=== PATIENT | male | born 1955 | race Caucasian/White ===

== ENCOUNTER → 2017-07-07 | Day surgery (SDC) | payer OTHER ==
[2017-07-05 11:47] LABS: BASOPHILS # (AUTO) 0.1 (0.0-0.1); BASOPHILS % 0.7 % (0.0-1.0); EOSINOPHILS # (AUTO) 0.5 (0.0-0.4); EOSINOPHILS % 5.2 % (0.0-6.0); HEMATOCRIT 43.9 % (38.2-49.6); HEMOGLOBIN 14.2 g/dL (14.0-18.0); LYMPHOCYTES # (AUTO) 2.1 (1.0-3.2); MEAN CORPUSCULAR HEMOGLOBIN 28.1 pg (28-32); MEAN CORPUSCULAR HGB CONC 32.3 g/dL (31-35); MEAN CORPUSCULAR VOLUME 86.8 fL (81-99); MONOCYTES # (AUTO) 0.8 (0.2-0.8); MONOCYTES % 7.9 % (4.4-11.3); NEUTROPHILS # (AUTO) 6.3 (2.1-6.9); PLATELET COUNT 233 x10e3/uL (140-360); RED BLOOD COUNT 5.06 x10e6/uL (4.3-5.7); RED CELL DISTRIBUTION WIDTH 13.1 % (11.7-14.4)
[2017-07-05 12:08] LABS: ALANINE AMINOTRANSFERASE 31 IU/L (0-55); ALBUMIN 3.3 g/dL (3.5-5.0); ALBUMIN/GLOBULIN RATIO 0.7 (0.8-2.0); ALKALINE PHOSPHATASE 97 IU/L (40-150); ANION GAP 13.5 mmol/L (8-16); BLOOD UREA NITROGEN 11 mg/dL (7-26); BUN/CREATININE RATIO 14 (6-25); CALCIUM 9.7 mg/dL (8.4-10.2); CARBON DIOXIDE 32 mmol/L (22-29); CHLORIDE 100 mmol/L (98-107); CHOL/HDL RATIO 2.6 (3.9-4.7); CHOLESTEROL 102 MD/DL (0-199); CREATININE, SERUM 0.76 mg/dL (0.72-1.25); EST GLOMERULAR FILTRATION RATE > 60 ML/MIN (60-); GLUCOSE 269 mg/dL (74-118); HDL CHOLESTEROL 40 MG/DL (40-60); LDL CHOLESTEROL 48 MG/DL (60-130); POTASSIUM 5.5 mmol/L (3.5-5.1); SODIUM 140 mmol/L (136-145); TRIGLYCERIDES 71 MG/DL (0-149)
[~2017-07-07] VITALS: Ht 172.7 cm; Wt 80.7 kg
[~2017-07-07] MED LIST: AMARYL4 MG PO; ASPIRIN EC81 MG PO; FENTANYL CITRATE/PF 100MCG/2 ML INJ ONE; GABAPENTIN100 MG PO; HEPARIN SOD/SOD CHLORIDE 2,000 ML ONE; IOPAMIDOL 300MG/ML 100 ML INFUS..BTL IV ONE; LIDOCAINE HCL 2% LOCAL 20 ML VIAL ONE; LIPITOR20 MG PO; MIDAZOLAM HCL 2 MG/2 ML VIAL ONE; NEXIUM40 M1 PO; PRASUGREL 10 MG TAB ONE; SODIUM CHLORIDE 0.9% 1000ML 1,000 ML ONE; TRADJENTA5 MG PO; TRULICITY IJ; [UNRECOGNIZED DRUG - OTHER] PO
[2017-07-07 12:43] VITALS: BP 142/78
== END ==
LOC: CATH LAB 11:49
PROVIDERS: ATTEND Internal Medicine Cardiovascular Disease
DX: I70.202 Unspecified atherosclerosis of native arteries of extremities, left leg (principal); Z86.73 Personal history of transient ischemic attack (TIA), and cerebral infarction without residual deficits
CPT/HCPCS: 36247; 36415; 37225; 75625; 75710; 77002; 80053; 80061; 83036; 85025; C1724; C1725 ×4; C1769 ×2; C1887; J2001; J2250; J7030; Q9967; 36140; 92924

== ENCOUNTER → 2017-08-09 | Outpatient (CLI) | payer OTHER ==
[~2017-08-09] MED LIST changes: -FENTANYL CITRATE/PF 100MCG/2 ML INJ ONE; -HEPARIN SOD/SOD CHLORIDE 2,000 ML ONE; -IOPAMIDOL 300MG/ML 100 ML INFUS..BTL IV ONE; -LIDOCAINE HCL 2% LOCAL 20 ML VIAL ONE; +LIDOCAINE VISC 2% SOLN 15 ML UDC ONE; -MIDAZOLAM HCL 2 MG/2 ML VIAL ONE; -PRASUGREL 10 MG TAB ONE; -SODIUM CHLORIDE 0.9% 1000ML 1,000 ML ONE
[2017-08-09 14:57] LABS: BASOPHILS # (AUTO) 0.1 (0.0-0.1); BASOPHILS % 0.6 % (0.0-1.0); EOSINOPHILS # (AUTO) 0.3 (0.0-0.4); EOSINOPHILS % 2.7 % (0.0-6.0); HEMATOCRIT 42.5 % (38.2-49.6); LYMPHOCYTES # (AUTO) 1.9 (1.0-3.2); LYMPHOCYTES % 15.2 % (18.0-39.1); MEAN CORPUSCULAR HEMOGLOBIN 27.6 pg (28-32); MEAN CORPUSCULAR HGB CONC 32.9 g/dL (31-35); MEAN CORPUSCULAR VOLUME 83.8 fL (81-99); MONOCYTES # (AUTO) 0.9 (0.2-0.8); MONOCYTES % 7.1 % (4.4-11.3); NEUTROPHILS # (AUTO) 9.1 (2.1-6.9); NEUTROPHILS % 74.1 % (38.7-80.0); PLATELET COUNT 288 x10e3/uL (140-360); RED BLOOD COUNT 5.07 x10e6/uL (4.3-5.7)
[2017-08-09 15:16] LABS: ALANINE AMINOTRANSFERASE 15 IU/L (0-55); ALBUMIN 3.7 g/dL (3.5-5.0); ALBUMIN/GLOBULIN RATIO 0.8 (0.8-2.0); ALKALINE PHOSPHATASE 76 IU/L (40-150); ANION GAP 18.4 mmol/L (8-16); BLOOD UREA NITROGEN 11 mg/dL (7-26); BUN/CREATININE RATIO 16 (6-25); CALCIUM 9.7 mg/dL (8.4-10.2); CARBON DIOXIDE 30 mmol/L (22-29); CHLORIDE 100 mmol/L (98-107); CREATININE, SERUM 0.68 mg/dL (0.72-1.25); EST GLOMERULAR FILTRATION RATE > 60 ML/MIN (60-); GLUCOSE 67 mg/dL (74-118); POTASSIUM 4.4 mmol/L (3.5-5.1); SODIUM 144 mmol/L (136-145)
[2017-08-09 15:36] LABS: ERYTHROCYTE SEDIMENTATION RATE 28 mm/hr (0-13)
== END ==
LOC: WCC 12:40
PROVIDERS: ATTEND Podiatrist Foot & Ankle Surgery
DX: E11.621 Type 2 diabetes mellitus with foot ulcer (principal); E11.610 Type 2 diabetes mellitus with diabetic neuropathic arthropathy; L97.429 Non-pressure chronic ulcer of left heel and midfoot with unspecified severity; I69.998 Other sequelae following unspecified cerebrovascular disease; K57.33 Diverticulitis of large intestine without perforation or abscess with bleeding; M10.9 Gout, unspecified
CPT/HCPCS: 36415; 80053; 83036; 84134; 85025; 85651

== ENCOUNTER → 2017-08-16 | Outpatient (CLI) | payer OTHER ==
[~2017-08-16] MED LIST changes: -LIDOCAINE VISC 2% SOLN 15 ML UDC ONE
--- NOTE | 2017-08-16 17:30 | Diagnostic Imaging Report ---
PROCEDURE: Frontal and lateral views of the chest. COMPARISON: None. INDICATIONS: PREOP - FOOT SX FINDINGS: Lines/tubes: None. Lungs: The lungs are well inflated and clear. There is no evidence of pneumonia or pulmonary edema. Pleura: There is no pleural effusion or pneumothorax. Heart and mediastinum: The heart and the mediastinum are normal. Bones: No acute bony abnormality. 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 IMPRESSION: 1. No acute cardiopulmonary disease. Mis Biswas M.D. Dictated by: Mis Biswas M.D. on 08/16/2017 at 17:31 Electronically approved by: Mis Biswas M.D. on 08/16/2017 at 17:31
== END ==
LOC: WCC 12:35
PROVIDERS: ATTEND Podiatrist Foot & Ankle Surgery
DX: E11.621 Type 2 diabetes mellitus with foot ulcer (principal); E11.610 Type 2 diabetes mellitus with diabetic neuropathic arthropathy; L97.429 Non-pressure chronic ulcer of left heel and midfoot with unspecified severity; L97.411 Non-pressure chronic ulcer of right heel and midfoot limited to breakdown of skin; H53.9 Unspecified visual disturbance; I69.998 Other sequelae following unspecified cerebrovascular disease; K57.33 Diverticulitis of large intestine without perforation or abscess with bleeding; M10.9 Gout, unspecified; Z01.810 Encounter for preprocedural cardiovascular examination; Z01.811 Encounter for preprocedural respiratory examination
CPT/HCPCS: 36415; 71046; 82948; 87071; 87075; 87186; 87205

== ENCOUNTER → 2017-08-23 | Outpatient (CLI) | payer OTHER | LOC: WCC 11:35 | PROVIDERS: ATTEND Podiatrist Foot & Ankle Surgery | DX: E11.621 Type 2 diabetes mellitus with foot ulcer (principal); E11.610 Type 2 diabetes mellitus with diabetic neuropathic arthropathy; L97.429 Non-pressure chronic ulcer of left heel and midfoot with unspecified severity; L97.411 Non-pressure chronic ulcer of right heel and midfoot limited to breakdown of skin; I69.998 Other sequelae following unspecified cerebrovascular disease; H53.9 Unspecified visual disturbance; K57.33 Diverticulitis of large intestine without perforation or abscess with bleeding; M10.9 Gout, unspecified; Z01.810 Encounter for preprocedural cardiovascular examination; Z01.811 Encounter for preprocedural respiratory examination ==

== ENCOUNTER → 2017-08-28 | Outpatient (CLI) | payer OTHER | LOC: WCC 08:52 | PROVIDERS: ATTEND Podiatrist Foot & Ankle Surgery | DX: E11.621 Type 2 diabetes mellitus with foot ulcer (principal); E11.610 Type 2 diabetes mellitus with diabetic neuropathic arthropathy; L97.429 Non-pressure chronic ulcer of left heel and midfoot with unspecified severity; L97.411 Non-pressure chronic ulcer of right heel and midfoot limited to breakdown of skin; I69.998 Other sequelae following unspecified cerebrovascular disease; M10.9 Gout, unspecified; K57.33 Diverticulitis of large intestine without perforation or abscess with bleeding; H53.9 Unspecified visual disturbance; Z01.810 Encounter for preprocedural cardiovascular examination; Z01.811 Encounter for preprocedural respiratory examination | CPT/HCPCS: 36415; 82948; 99213; G0277 ==

== ENCOUNTER → 2017-08-29 | Outpatient (CLI) | payer OTHER | LOC: WCC 13:01 | PROVIDERS: ATTEND Podiatrist Foot & Ankle Surgery | DX: E11.621 Type 2 diabetes mellitus with foot ulcer (principal); E11.610 Type 2 diabetes mellitus with diabetic neuropathic arthropathy; L97.429 Non-pressure chronic ulcer of left heel and midfoot with unspecified severity; L97.411 Non-pressure chronic ulcer of right heel and midfoot limited to breakdown of skin; I69.998 Other sequelae following unspecified cerebrovascular disease; M10.9 Gout, unspecified; K57.33 Diverticulitis of large intestine without perforation or abscess with bleeding; H53.9 Unspecified visual disturbance; Z01.810 Encounter for preprocedural cardiovascular examination; Z01.811 Encounter for preprocedural respiratory examination ==

== ENCOUNTER → 2017-08-30 | Outpatient (CLI) | payer OTHER | LOC: WCC 09:48 | PROVIDERS: ATTEND Podiatrist Foot & Ankle Surgery | DX: E11.621 Type 2 diabetes mellitus with foot ulcer (principal); E11.610 Type 2 diabetes mellitus with diabetic neuropathic arthropathy; L97.429 Non-pressure chronic ulcer of left heel and midfoot with unspecified severity; L97.411 Non-pressure chronic ulcer of right heel and midfoot limited to breakdown of skin; I69.998 Other sequelae following unspecified cerebrovascular disease; M10.9 Gout, unspecified; K57.33 Diverticulitis of large intestine without perforation or abscess with bleeding; H53.9 Unspecified visual disturbance; Z01.810 Encounter for preprocedural cardiovascular examination; Z01.811 Encounter for preprocedural respiratory examination | CPT/HCPCS: 99213; G0277 ==

== ENCOUNTER → 2017-08-31 | Outpatient (CLI) | payer OTHER | LOC: WCC 10:08 | PROVIDERS: ATTEND Podiatrist Foot & Ankle Surgery | DX: E11.621 Type 2 diabetes mellitus with foot ulcer (principal); E11.610 Type 2 diabetes mellitus with diabetic neuropathic arthropathy; L97.429 Non-pressure chronic ulcer of left heel and midfoot with unspecified severity; L97.411 Non-pressure chronic ulcer of right heel and midfoot limited to breakdown of skin; I69.998 Other sequelae following unspecified cerebrovascular disease; M10.9 Gout, unspecified; A49.02 Methicillin resistant Staphylococcus aureus infection, unspecified site; K57.33 Diverticulitis of large intestine without perforation or abscess with bleeding; H53.9 Unspecified visual disturbance; Z01.810 Encounter for preprocedural cardiovascular examination; Z01.811 Encounter for preprocedural respiratory examination ==

== ENCOUNTER → 2017-09-01 | Outpatient (CLI) | payer OTHER | LOC: WCC 09:19 | PROVIDERS: ATTEND Podiatrist Foot & Ankle Surgery | DX: E11.621 Type 2 diabetes mellitus with foot ulcer (principal); E11.610 Type 2 diabetes mellitus with diabetic neuropathic arthropathy; L97.429 Non-pressure chronic ulcer of left heel and midfoot with unspecified severity; L97.411 Non-pressure chronic ulcer of right heel and midfoot limited to breakdown of skin; I69.998 Other sequelae following unspecified cerebrovascular disease; A49.02 Methicillin resistant Staphylococcus aureus infection, unspecified site; M10.9 Gout, unspecified; H53.9 Unspecified visual disturbance; K57.33 Diverticulitis of large intestine without perforation or abscess with bleeding; Z01.810 Encounter for preprocedural cardiovascular examination; Z01.811 Encounter for preprocedural respiratory examination | CPT/HCPCS: 36415; 82948; 99203; G0277 ==

== ENCOUNTER → 2017-09-04 | Outpatient (CLI) | payer OTHER | LOC: WCC 08:46 | PROVIDERS: ATTEND Podiatrist Foot & Ankle Surgery | DX: E11.621 Type 2 diabetes mellitus with foot ulcer (principal); E11.610 Type 2 diabetes mellitus with diabetic neuropathic arthropathy; L97.429 Non-pressure chronic ulcer of left heel and midfoot with unspecified severity; L97.411 Non-pressure chronic ulcer of right heel and midfoot limited to breakdown of skin; A49.02 Methicillin resistant Staphylococcus aureus infection, unspecified site; I69.998 Other sequelae following unspecified cerebrovascular disease; M10.9 Gout, unspecified; K57.33 Diverticulitis of large intestine without perforation or abscess with bleeding; H53.9 Unspecified visual disturbance; Z01.810 Encounter for preprocedural cardiovascular examination; Z01.811 Encounter for preprocedural respiratory examination | CPT/HCPCS: 99213; G0277 ==

== ENCOUNTER → 2017-09-05 | Outpatient (CLI) | payer OTHER | LOC: WCC 08:55 | PROVIDERS: ATTEND Podiatrist Foot & Ankle Surgery | DX: E11.621 Type 2 diabetes mellitus with foot ulcer (principal); E11.610 Type 2 diabetes mellitus with diabetic neuropathic arthropathy; L97.429 Non-pressure chronic ulcer of left heel and midfoot with unspecified severity; L97.411 Non-pressure chronic ulcer of right heel and midfoot limited to breakdown of skin; I69.998 Other sequelae following unspecified cerebrovascular disease; K57.33 Diverticulitis of large intestine without perforation or abscess with bleeding; M10.9 Gout, unspecified; A49.02 Methicillin resistant Staphylococcus aureus infection, unspecified site; H53.9 Unspecified visual disturbance; Z01.810 Encounter for preprocedural cardiovascular examination; Z01.811 Encounter for preprocedural respiratory examination ==

== ENCOUNTER → 2017-09-06 | Outpatient (CLI) | payer OTHER | LOC: WCC 10:19 | PROVIDERS: ATTEND Podiatrist Foot & Ankle Surgery | DX: E11.621 Type 2 diabetes mellitus with foot ulcer (principal); E11.610 Type 2 diabetes mellitus with diabetic neuropathic arthropathy; L97.429 Non-pressure chronic ulcer of left heel and midfoot with unspecified severity; L97.411 Non-pressure chronic ulcer of right heel and midfoot limited to breakdown of skin; I69.998 Other sequelae following unspecified cerebrovascular disease; K57.33 Diverticulitis of large intestine without perforation or abscess with bleeding; M10.9 Gout, unspecified; H53.9 Unspecified visual disturbance; Z01.810 Encounter for preprocedural cardiovascular examination; Z01.811 Encounter for preprocedural respiratory examination | CPT/HCPCS: 11042; G0277 ==

== ENCOUNTER → 2017-09-07 | Outpatient (CLI) | payer OTHER | LOC: WCC 09:04 | PROVIDERS: ATTEND Podiatrist Foot & Ankle Surgery | DX: E11.621 Type 2 diabetes mellitus with foot ulcer (principal); E11.610 Type 2 diabetes mellitus with diabetic neuropathic arthropathy; L97.429 Non-pressure chronic ulcer of left heel and midfoot with unspecified severity; L97.411 Non-pressure chronic ulcer of right heel and midfoot limited to breakdown of skin; I69.998 Other sequelae following unspecified cerebrovascular disease; M10.9 Gout, unspecified; K57.33 Diverticulitis of large intestine without perforation or abscess with bleeding; A49.02 Methicillin resistant Staphylococcus aureus infection, unspecified site; H53.9 Unspecified visual disturbance; Z01.810 Encounter for preprocedural cardiovascular examination; Z01.811 Encounter for preprocedural respiratory examination ==

== ENCOUNTER → 2017-09-11 | Outpatient (CLI) | payer OTHER | LOC: WCC 11:04 | PROVIDERS: ATTEND Podiatrist Foot & Ankle Surgery | DX: E11.621 Type 2 diabetes mellitus with foot ulcer (principal); E11.610 Type 2 diabetes mellitus with diabetic neuropathic arthropathy; I69.998 Other sequelae following unspecified cerebrovascular disease; L97.429 Non-pressure chronic ulcer of left heel and midfoot with unspecified severity; L97.411 Non-pressure chronic ulcer of right heel and midfoot limited to breakdown of skin; A49.02 Methicillin resistant Staphylococcus aureus infection, unspecified site; M10.9 Gout, unspecified; K57.33 Diverticulitis of large intestine without perforation or abscess with bleeding; H53.9 Unspecified visual disturbance; Z01.810 Encounter for preprocedural cardiovascular examination; Z01.811 Encounter for preprocedural respiratory examination | CPT/HCPCS: 36415; 82948; G0277 ==

== ENCOUNTER → 2017-09-12 | Outpatient (CLI) | payer OTHER | LOC: WCC 07:03 | PROVIDERS: ATTEND Podiatrist Foot & Ankle Surgery | DX: E11.621 Type 2 diabetes mellitus with foot ulcer (principal); E11.610 Type 2 diabetes mellitus with diabetic neuropathic arthropathy; L97.429 Non-pressure chronic ulcer of left heel and midfoot with unspecified severity; L97.411 Non-pressure chronic ulcer of right heel and midfoot limited to breakdown of skin; I69.998 Other sequelae following unspecified cerebrovascular disease; A49.02 Methicillin resistant Staphylococcus aureus infection, unspecified site; K57.33 Diverticulitis of large intestine without perforation or abscess with bleeding; M10.9 Gout, unspecified; H53.9 Unspecified visual disturbance; Z01.810 Encounter for preprocedural cardiovascular examination; Z01.811 Encounter for preprocedural respiratory examination | CPT/HCPCS: 83036; G0277 ==

== ENCOUNTER → 2017-09-13 | Outpatient (CLI) | payer OTHER | LOC: WCC 09:27 | PROVIDERS: ATTEND Podiatrist Foot & Ankle Surgery | DX: E11.621 Type 2 diabetes mellitus with foot ulcer (principal); E11.610 Type 2 diabetes mellitus with diabetic neuropathic arthropathy; I69.998 Other sequelae following unspecified cerebrovascular disease; L97.429 Non-pressure chronic ulcer of left heel and midfoot with unspecified severity; L97.411 Non-pressure chronic ulcer of right heel and midfoot limited to breakdown of skin; M10.9 Gout, unspecified; A49.02 Methicillin resistant Staphylococcus aureus infection, unspecified site; K57.33 Diverticulitis of large intestine without perforation or abscess with bleeding; H53.9 Unspecified visual disturbance; Z01.810 Encounter for preprocedural cardiovascular examination; Z01.811 Encounter for preprocedural respiratory examination | CPT/HCPCS: 11042; 99213; G0277 ==

== ENCOUNTER → 2017-09-14 | Outpatient (CLI) | payer OTHER | LOC: WCC 09:24 | PROVIDERS: ATTEND Podiatrist Foot & Ankle Surgery | DX: E11.621 Type 2 diabetes mellitus with foot ulcer (principal); E11.610 Type 2 diabetes mellitus with diabetic neuropathic arthropathy; L97.429 Non-pressure chronic ulcer of left heel and midfoot with unspecified severity; I69.998 Other sequelae following unspecified cerebrovascular disease; A49.02 Methicillin resistant Staphylococcus aureus infection, unspecified site; M10.9 Gout, unspecified; K57.33 Diverticulitis of large intestine without perforation or abscess with bleeding; H53.9 Unspecified visual disturbance; Z01.810 Encounter for preprocedural cardiovascular examination; Z01.811 Encounter for preprocedural respiratory examination ==

== ENCOUNTER → 2017-09-15 | Outpatient (CLI) | payer OTHER | LOC: WCC 08:54 | PROVIDERS: ATTEND Podiatrist Foot & Ankle Surgery | DX: E11.621 Type 2 diabetes mellitus with foot ulcer (principal); E11.610 Type 2 diabetes mellitus with diabetic neuropathic arthropathy; L97.429 Non-pressure chronic ulcer of left heel and midfoot with unspecified severity; I69.998 Other sequelae following unspecified cerebrovascular disease; M10.9 Gout, unspecified; A49.02 Methicillin resistant Staphylococcus aureus infection, unspecified site; K57.33 Diverticulitis of large intestine without perforation or abscess with bleeding; Z01.810 Encounter for preprocedural cardiovascular examination; Z01.811 Encounter for preprocedural respiratory examination | CPT/HCPCS: 99213; G0277 ==

== ENCOUNTER → 2017-09-18 | Outpatient (CLI) | payer OTHER | LOC: WCC 11:27 | PROVIDERS: ATTEND Podiatrist Foot & Ankle Surgery | DX: E11.621 Type 2 diabetes mellitus with foot ulcer (principal); E11.610 Type 2 diabetes mellitus with diabetic neuropathic arthropathy; L97.429 Non-pressure chronic ulcer of left heel and midfoot with unspecified severity; H53.9 Unspecified visual disturbance; I69.998 Other sequelae following unspecified cerebrovascular disease; K57.33 Diverticulitis of large intestine without perforation or abscess with bleeding; M10.9 Gout, unspecified; Z01.810 Encounter for preprocedural cardiovascular examination; Z01.811 Encounter for preprocedural respiratory examination ==

== ENCOUNTER → 2017-09-19 | Outpatient (CLI) | payer OTHER | LOC: WCC 13:46 | PROVIDERS: ATTEND Podiatrist Foot & Ankle Surgery | DX: E11.621 Type 2 diabetes mellitus with foot ulcer (principal); E11.610 Type 2 diabetes mellitus with diabetic neuropathic arthropathy; L97.429 Non-pressure chronic ulcer of left heel and midfoot with unspecified severity; I69.998 Other sequelae following unspecified cerebrovascular disease; M10.9 Gout, unspecified; K57.33 Diverticulitis of large intestine without perforation or abscess with bleeding; H53.9 Unspecified visual disturbance; Z01.810 Encounter for preprocedural cardiovascular examination; Z01.811 Encounter for preprocedural respiratory examination | CPT/HCPCS: 36415; 82948; G0277 ==

== ENCOUNTER → 2017-09-20 | Outpatient (CLI) | payer OTHER | LOC: WCC 09:53 | PROVIDERS: ATTEND Podiatrist Foot & Ankle Surgery | DX: E11.621 Type 2 diabetes mellitus with foot ulcer (principal); E11.610 Type 2 diabetes mellitus with diabetic neuropathic arthropathy; L97.429 Non-pressure chronic ulcer of left heel and midfoot with unspecified severity; I69.998 Other sequelae following unspecified cerebrovascular disease; M10.9 Gout, unspecified; H53.9 Unspecified visual disturbance; K57.33 Diverticulitis of large intestine without perforation or abscess with bleeding; Z01.810 Encounter for preprocedural cardiovascular examination; Z01.811 Encounter for preprocedural respiratory examination | CPT/HCPCS: 15275; G0277; Q4131 ==

== ENCOUNTER → 2017-09-21 | Outpatient (CLI) | payer OTHER | LOC: WCC 08:49 | PROVIDERS: ATTEND Podiatrist Foot & Ankle Surgery | DX: E11.621 Type 2 diabetes mellitus with foot ulcer (principal); E11.610 Type 2 diabetes mellitus with diabetic neuropathic arthropathy; L97.429 Non-pressure chronic ulcer of left heel and midfoot with unspecified severity; I69.998 Other sequelae following unspecified cerebrovascular disease; M10.9 Gout, unspecified; K57.33 Diverticulitis of large intestine without perforation or abscess with bleeding; H53.9 Unspecified visual disturbance; Z01.810 Encounter for preprocedural cardiovascular examination; Z01.811 Encounter for preprocedural respiratory examination | CPT/HCPCS: 36415; 82948; G0277 ==

== ENCOUNTER → 2017-09-22 | Outpatient (CLI) | payer OTHER | LOC: WCC 11:08 | PROVIDERS: ATTEND Podiatrist Foot & Ankle Surgery | DX: E11.621 Type 2 diabetes mellitus with foot ulcer (principal); E11.610 Type 2 diabetes mellitus with diabetic neuropathic arthropathy; L97.429 Non-pressure chronic ulcer of left heel and midfoot with unspecified severity; I69.998 Other sequelae following unspecified cerebrovascular disease; M10.9 Gout, unspecified; K57.33 Diverticulitis of large intestine without perforation or abscess with bleeding; H53.9 Unspecified visual disturbance; Z01.810 Encounter for preprocedural cardiovascular examination; Z01.811 Encounter for preprocedural respiratory examination ==

== ENCOUNTER → 2017-09-25 | Outpatient (CLI) | payer OTHER | LOC: WCC 11:23 | PROVIDERS: ATTEND Podiatrist Foot & Ankle Surgery | DX: E11.621 Type 2 diabetes mellitus with foot ulcer (principal); E11.610 Type 2 diabetes mellitus with diabetic neuropathic arthropathy; L97.429 Non-pressure chronic ulcer of left heel and midfoot with unspecified severity; I69.998 Other sequelae following unspecified cerebrovascular disease; M10.9 Gout, unspecified; K57.33 Diverticulitis of large intestine without perforation or abscess with bleeding; H53.9 Unspecified visual disturbance; Z01.810 Encounter for preprocedural cardiovascular examination; Z01.811 Encounter for preprocedural respiratory examination ==

== ENCOUNTER → 2017-09-26 | Outpatient (CLI) | payer OTHER | LOC: WCC 08:48 | PROVIDERS: ATTEND Podiatrist Foot & Ankle Surgery | DX: E11.621 Type 2 diabetes mellitus with foot ulcer (principal); E11.610 Type 2 diabetes mellitus with diabetic neuropathic arthropathy; L97.429 Non-pressure chronic ulcer of left heel and midfoot with unspecified severity; I69.998 Other sequelae following unspecified cerebrovascular disease; M10.9 Gout, unspecified; K57.33 Diverticulitis of large intestine without perforation or abscess with bleeding; H53.9 Unspecified visual disturbance; Z01.810 Encounter for preprocedural cardiovascular examination; Z01.811 Encounter for preprocedural respiratory examination ==

== ENCOUNTER → 2017-09-27 | Outpatient (CLI) | payer OTHER ==
[~2017-09-27] MED LIST changes: +LIDOCAINE VISC 2% SOLN 15 ML UDC ONE
== END ==
LOC: WCC 09:51
PROVIDERS: ATTEND Podiatrist Foot & Ankle Surgery
DX: E11.621 Type 2 diabetes mellitus with foot ulcer (principal); E11.610 Type 2 diabetes mellitus with diabetic neuropathic arthropathy; L97.429 Non-pressure chronic ulcer of left heel and midfoot with unspecified severity; I69.998 Other sequelae following unspecified cerebrovascular disease; H53.9 Unspecified visual disturbance; M10.9 Gout, unspecified; K57.33 Diverticulitis of large intestine without perforation or abscess with bleeding; Z01.810 Encounter for preprocedural cardiovascular examination; Z01.811 Encounter for preprocedural respiratory examination

== ENCOUNTER → 2017-09-28 | Outpatient (CLI) | payer OTHER ==
[~2017-09-28] MED LIST changes: -LIDOCAINE VISC 2% SOLN 15 ML UDC ONE
== END ==
LOC: WCC 10:07
PROVIDERS: ATTEND Podiatrist Foot & Ankle Surgery
DX: E11.621 Type 2 diabetes mellitus with foot ulcer (principal); E11.610 Type 2 diabetes mellitus with diabetic neuropathic arthropathy; L97.429 Non-pressure chronic ulcer of left heel and midfoot with unspecified severity; I69.998 Other sequelae following unspecified cerebrovascular disease; M10.9 Gout, unspecified; H53.9 Unspecified visual disturbance; K57.33 Diverticulitis of large intestine without perforation or abscess with bleeding; Z01.810 Encounter for preprocedural cardiovascular examination; Z01.811 Encounter for preprocedural respiratory examination
CPT/HCPCS: G0277 ×2

== ENCOUNTER → 2017-09-29 | Outpatient (CLI) | payer OTHER | LOC: WCC 09:30 | PROVIDERS: ATTEND Podiatrist Foot & Ankle Surgery | DX: E11.621 Type 2 diabetes mellitus with foot ulcer (principal); L97.429 Non-pressure chronic ulcer of left heel and midfoot with unspecified severity; E11.610 Type 2 diabetes mellitus with diabetic neuropathic arthropathy; I69.998 Other sequelae following unspecified cerebrovascular disease; M10.9 Gout, unspecified; K57.33 Diverticulitis of large intestine without perforation or abscess with bleeding; H53.9 Unspecified visual disturbance; Z01.810 Encounter for preprocedural cardiovascular examination; Z01.811 Encounter for preprocedural respiratory examination | CPT/HCPCS: 36415; 82948; 99212; G0277 ==

== ENCOUNTER → 2017-10-02 | Outpatient (CLI) | payer OTHER | LOC: WCC 12:32 | PROVIDERS: ATTEND Podiatrist Foot & Ankle Surgery | DX: E11.621 Type 2 diabetes mellitus with foot ulcer (principal); L97.429 Non-pressure chronic ulcer of left heel and midfoot with unspecified severity; E11.610 Type 2 diabetes mellitus with diabetic neuropathic arthropathy; I69.998 Other sequelae following unspecified cerebrovascular disease; M10.9 Gout, unspecified; K57.33 Diverticulitis of large intestine without perforation or abscess with bleeding; H53.9 Unspecified visual disturbance; Z01.810 Encounter for preprocedural cardiovascular examination; Z01.811 Encounter for preprocedural respiratory examination ==

== ENCOUNTER → 2017-10-03 | Outpatient (CLI) | payer OTHER | LOC: WCC 13:43 | PROVIDERS: ATTEND Podiatrist Foot & Ankle Surgery | DX: E11.621 Type 2 diabetes mellitus with foot ulcer (principal); E11.610 Type 2 diabetes mellitus with diabetic neuropathic arthropathy; L97.429 Non-pressure chronic ulcer of left heel and midfoot with unspecified severity; I69.998 Other sequelae following unspecified cerebrovascular disease; M10.9 Gout, unspecified; K57.33 Diverticulitis of large intestine without perforation or abscess with bleeding; H53.9 Unspecified visual disturbance; Z01.810 Encounter for preprocedural cardiovascular examination; Z01.811 Encounter for preprocedural respiratory examination ==

== ENCOUNTER → 2017-10-04 | Outpatient (CLI) | payer OTHER ==
[~2017-10-04] MED LIST changes: +LIDOCAINE VISC 2% SOLN 15 ML UDC ONE
== END ==
LOC: WCC 09:47
PROVIDERS: ATTEND Podiatrist Foot & Ankle Surgery
DX: E11.621 Type 2 diabetes mellitus with foot ulcer (principal); E11.610 Type 2 diabetes mellitus with diabetic neuropathic arthropathy; L97.429 Non-pressure chronic ulcer of left heel and midfoot with unspecified severity; I69.998 Other sequelae following unspecified cerebrovascular disease; M10.9 Gout, unspecified; H53.9 Unspecified visual disturbance; K57.33 Diverticulitis of large intestine without perforation or abscess with bleeding; Z01.810 Encounter for preprocedural cardiovascular examination; Z01.811 Encounter for preprocedural respiratory examination
CPT/HCPCS: 11042; G0277

== ENCOUNTER → 2017-10-05 | Outpatient (CLI) | payer OTHER ==
[~2017-10-05] MED LIST changes: -LIDOCAINE VISC 2% SOLN 15 ML UDC ONE
== END ==
LOC: WCC 14:54
PROVIDERS: ATTEND Podiatrist Foot & Ankle Surgery
DX: E11.621 Type 2 diabetes mellitus with foot ulcer (principal); L97.429 Non-pressure chronic ulcer of left heel and midfoot with unspecified severity; E11.610 Type 2 diabetes mellitus with diabetic neuropathic arthropathy; H53.9 Unspecified visual disturbance; I69.998 Other sequelae following unspecified cerebrovascular disease; K57.33 Diverticulitis of large intestine without perforation or abscess with bleeding; M10.9 Gout, unspecified; Z01.810 Encounter for preprocedural cardiovascular examination; Z01.811 Encounter for preprocedural respiratory examination
CPT/HCPCS: 36415; 82948

== ENCOUNTER → 2017-10-09 | Outpatient (CLI) | payer OTHER | LOC: WCC 13:31 | PROVIDERS: ATTEND Podiatrist Foot & Ankle Surgery | DX: E11.621 Type 2 diabetes mellitus with foot ulcer (principal); E11.610 Type 2 diabetes mellitus with diabetic neuropathic arthropathy; L97.429 Non-pressure chronic ulcer of left heel and midfoot with unspecified severity; I69.998 Other sequelae following unspecified cerebrovascular disease; M10.9 Gout, unspecified; H53.9 Unspecified visual disturbance; K57.33 Diverticulitis of large intestine without perforation or abscess with bleeding; Z01.810 Encounter for preprocedural cardiovascular examination; Z01.811 Encounter for preprocedural respiratory examination ==

== ENCOUNTER → 2017-10-10 | Outpatient (CLI) | payer OTHER | LOC: WCC 10:28 | PROVIDERS: ATTEND Podiatrist Foot & Ankle Surgery | DX: E11.621 Type 2 diabetes mellitus with foot ulcer (principal); E11.610 Type 2 diabetes mellitus with diabetic neuropathic arthropathy; L97.429 Non-pressure chronic ulcer of left heel and midfoot with unspecified severity; I69.998 Other sequelae following unspecified cerebrovascular disease; M10.9 Gout, unspecified; H53.9 Unspecified visual disturbance; K57.33 Diverticulitis of large intestine without perforation or abscess with bleeding; Z01.810 Encounter for preprocedural cardiovascular examination; Z01.811 Encounter for preprocedural respiratory examination | CPT/HCPCS: 36415; 82948; G0277 ==

== ENCOUNTER → 2017-10-11 | Outpatient (CLI) | payer OTHER ==
[~2017-10-11] MED LIST changes: +MINERAL OIL/PETROLAT/GLYCERI 6OZ BTL ONE
== END ==
LOC: WCC 12:56
PROVIDERS: ATTEND Podiatrist Foot & Ankle Surgery
DX: E11.621 Type 2 diabetes mellitus with foot ulcer (principal); E11.610 Type 2 diabetes mellitus with diabetic neuropathic arthropathy; L97.429 Non-pressure chronic ulcer of left heel and midfoot with unspecified severity; I69.998 Other sequelae following unspecified cerebrovascular disease; M10.9 Gout, unspecified; K57.33 Diverticulitis of large intestine without perforation or abscess with bleeding; H53.9 Unspecified visual disturbance; Z01.810 Encounter for preprocedural cardiovascular examination; Z01.811 Encounter for preprocedural respiratory examination

== ENCOUNTER → 2017-10-12 | Outpatient (CLI) | payer OTHER ==
[~2017-10-12] MED LIST changes: -MINERAL OIL/PETROLAT/GLYCERI 6OZ BTL ONE
== END ==
LOC: WCC 09:47
PROVIDERS: ATTEND Podiatrist Foot & Ankle Surgery
DX: E11.621 Type 2 diabetes mellitus with foot ulcer (principal); E11.610 Type 2 diabetes mellitus with diabetic neuropathic arthropathy; L97.429 Non-pressure chronic ulcer of left heel and midfoot with unspecified severity; I69.998 Other sequelae following unspecified cerebrovascular disease; M10.9 Gout, unspecified; K57.33 Diverticulitis of large intestine without perforation or abscess with bleeding; H53.9 Unspecified visual disturbance; Z01.810 Encounter for preprocedural cardiovascular examination; Z01.811 Encounter for preprocedural respiratory examination

== ENCOUNTER → 2017-10-25 | Outpatient (CLI) | payer OTHER | LOC: WCC 10:02 | PROVIDERS: ATTEND Podiatrist Foot & Ankle Surgery | DX: E11.621 Type 2 diabetes mellitus with foot ulcer (principal); E11.610 Type 2 diabetes mellitus with diabetic neuropathic arthropathy; I69.998 Other sequelae following unspecified cerebrovascular disease; L97.429 Non-pressure chronic ulcer of left heel and midfoot with unspecified severity; S90.822A Blister (nonthermal), left foot, initial encounter; M10.9 Gout, unspecified; H53.9 Unspecified visual disturbance; K57.33 Diverticulitis of large intestine without perforation or abscess with bleeding; Z01.810 Encounter for preprocedural cardiovascular examination; Z01.811 Encounter for preprocedural respiratory examination | CPT/HCPCS: 99213; G0277 ==

== ENCOUNTER → 2017-10-26 | Outpatient (CLI) | payer OTHER | LOC: WCC 09:44 | PROVIDERS: ATTEND Podiatrist Foot & Ankle Surgery | DX: E11.621 Type 2 diabetes mellitus with foot ulcer (principal); E11.610 Type 2 diabetes mellitus with diabetic neuropathic arthropathy; L97.429 Non-pressure chronic ulcer of left heel and midfoot with unspecified severity; I69.998 Other sequelae following unspecified cerebrovascular disease; S90.822A Blister (nonthermal), left foot, initial encounter; M10.9 Gout, unspecified; H53.9 Unspecified visual disturbance; K57.33 Diverticulitis of large intestine without perforation or abscess with bleeding; Z01.810 Encounter for preprocedural cardiovascular examination; Z01.811 Encounter for preprocedural respiratory examination ==

== ENCOUNTER → 2017-10-27 | Outpatient (CLI) | payer OTHER | LOC: WCC 09:37 | PROVIDERS: ATTEND Podiatrist Foot & Ankle Surgery | DX: E11.621 Type 2 diabetes mellitus with foot ulcer (principal); E11.610 Type 2 diabetes mellitus with diabetic neuropathic arthropathy; L97.429 Non-pressure chronic ulcer of left heel and midfoot with unspecified severity; S90.822A Blister (nonthermal), left foot, initial encounter; M10.9 Gout, unspecified; K57.33 Diverticulitis of large intestine without perforation or abscess with bleeding; H53.9 Unspecified visual disturbance; Z01.810 Encounter for preprocedural cardiovascular examination; Z01.811 Encounter for preprocedural respiratory examination ==

== ENCOUNTER → 2017-10-30 | Outpatient (CLI) | payer OTHER | LOC: WCC 12:48 | PROVIDERS: ATTEND Podiatrist Foot & Ankle Surgery | DX: E11.621 Type 2 diabetes mellitus with foot ulcer (principal); E11.610 Type 2 diabetes mellitus with diabetic neuropathic arthropathy; L97.429 Non-pressure chronic ulcer of left heel and midfoot with unspecified severity; I69.998 Other sequelae following unspecified cerebrovascular disease; S90.822A Blister (nonthermal), left foot, initial encounter; M10.9 Gout, unspecified; K57.33 Diverticulitis of large intestine without perforation or abscess with bleeding; H53.9 Unspecified visual disturbance; Z01.810 Encounter for preprocedural cardiovascular examination; Z01.811 Encounter for preprocedural respiratory examination | CPT/HCPCS: 99212; G0277 ==

== ENCOUNTER → 2017-10-31 | Outpatient (CLI) | payer OTHER | LOC: WCC 10:06 | PROVIDERS: ATTEND Podiatrist Foot & Ankle Surgery ==

== ENCOUNTER → 2017-11-01 | Outpatient (CLI) | payer OTHER | LOC: WCC 10:06 | PROVIDERS: ATTEND Podiatrist Foot & Ankle Surgery | DX: E11.621 Type 2 diabetes mellitus with foot ulcer (principal); E11.610 Type 2 diabetes mellitus with diabetic neuropathic arthropathy; L97.429 Non-pressure chronic ulcer of left heel and midfoot with unspecified severity; I69.998 Other sequelae following unspecified cerebrovascular disease; S90.822A Blister (nonthermal), left foot, initial encounter; M10.9 Gout, unspecified; K57.33 Diverticulitis of large intestine without perforation or abscess with bleeding; H53.9 Unspecified visual disturbance; Z01.810 Encounter for preprocedural cardiovascular examination; Z01.811 Encounter for preprocedural respiratory examination ==

== ENCOUNTER → 2017-11-02 | Outpatient (CLI) | payer OTHER | LOC: WCC 10:18 | PROVIDERS: ATTEND Podiatrist Foot & Ankle Surgery | DX: E11.621 Type 2 diabetes mellitus with foot ulcer (principal); E11.610 Type 2 diabetes mellitus with diabetic neuropathic arthropathy; L97.429 Non-pressure chronic ulcer of left heel and midfoot with unspecified severity; I69.998 Other sequelae following unspecified cerebrovascular disease; S90.822A Blister (nonthermal), left foot, initial encounter; M10.9 Gout, unspecified; K57.33 Diverticulitis of large intestine without perforation or abscess with bleeding; H53.9 Unspecified visual disturbance; Z01.810 Encounter for preprocedural cardiovascular examination; Z01.811 Encounter for preprocedural respiratory examination ==

== ENCOUNTER → 2017-11-03 | Outpatient (CLI) | payer OTHER ==
[~2017-11-03] MED LIST changes: +MINERAL OIL/PETROLAT/GLYCERI 6OZ BTL ONE
== END ==
LOC: WCC 08:59
PROVIDERS: ATTEND Podiatrist Foot & Ankle Surgery
DX: E11.621 Type 2 diabetes mellitus with foot ulcer (principal); E11.610 Type 2 diabetes mellitus with diabetic neuropathic arthropathy; L97.429 Non-pressure chronic ulcer of left heel and midfoot with unspecified severity; S90.822A Blister (nonthermal), left foot, initial encounter; K57.33 Diverticulitis of large intestine without perforation or abscess with bleeding; I69.998 Other sequelae following unspecified cerebrovascular disease; H53.9 Unspecified visual disturbance; M10.9 Gout, unspecified; Z01.810 Encounter for preprocedural cardiovascular examination; Z01.811 Encounter for preprocedural respiratory examination

== ENCOUNTER → 2017-11-07 | Outpatient (CLI) | payer OTHER ==
[~2017-11-07] MED LIST changes: -MINERAL OIL/PETROLAT/GLYCERI 6OZ BTL ONE
== END ==
LOC: WCC 10:58
PROVIDERS: ATTEND Podiatrist Foot & Ankle Surgery
DX: E11.621 Type 2 diabetes mellitus with foot ulcer (principal); E11.610 Type 2 diabetes mellitus with diabetic neuropathic arthropathy; L97.429 Non-pressure chronic ulcer of left heel and midfoot with unspecified severity; I69.998 Other sequelae following unspecified cerebrovascular disease; M10.9 Gout, unspecified; H53.9 Unspecified visual disturbance; K57.33 Diverticulitis of large intestine without perforation or abscess with bleeding; Z01.810 Encounter for preprocedural cardiovascular examination; Z01.811 Encounter for preprocedural respiratory examination

== ENCOUNTER → 2017-11-08 | Outpatient (CLI) | payer OTHER | LOC: WCC 09:42 | PROVIDERS: ATTEND Podiatrist Foot & Ankle Surgery | DX: E11.621 Type 2 diabetes mellitus with foot ulcer (principal); E11.610 Type 2 diabetes mellitus with diabetic neuropathic arthropathy; L97.429 Non-pressure chronic ulcer of left heel and midfoot with unspecified severity; I69.998 Other sequelae following unspecified cerebrovascular disease; M10.9 Gout, unspecified; H53.9 Unspecified visual disturbance; K57.33 Diverticulitis of large intestine without perforation or abscess with bleeding; Z01.810 Encounter for preprocedural cardiovascular examination; Z01.811 Encounter for preprocedural respiratory examination | CPT/HCPCS: 36415; 82948 ==

== ENCOUNTER → 2017-11-10 | Outpatient (CLI) | payer OTHER | LOC: WCC 11:52 | PROVIDERS: ATTEND Podiatrist Foot & Ankle Surgery | DX: E11.621 Type 2 diabetes mellitus with foot ulcer (principal); E11.610 Type 2 diabetes mellitus with diabetic neuropathic arthropathy; L97.429 Non-pressure chronic ulcer of left heel and midfoot with unspecified severity; I69.998 Other sequelae following unspecified cerebrovascular disease; K57.33 Diverticulitis of large intestine without perforation or abscess with bleeding; M10.9 Gout, unspecified; H53.9 Unspecified visual disturbance; Z01.810 Encounter for preprocedural cardiovascular examination; Z01.811 Encounter for preprocedural respiratory examination | CPT/HCPCS: 36415; 82948; G0277 ==

== ENCOUNTER → 2017-11-13 | Outpatient (CLI) | payer OTHER | LOC: WCC 08:16 | PROVIDERS: ATTEND Podiatrist Foot & Ankle Surgery | DX: E11.621 Type 2 diabetes mellitus with foot ulcer (principal); E11.610 Type 2 diabetes mellitus with diabetic neuropathic arthropathy; L97.429 Non-pressure chronic ulcer of left heel and midfoot with unspecified severity; I69.998 Other sequelae following unspecified cerebrovascular disease; M10.9 Gout, unspecified; K57.33 Diverticulitis of large intestine without perforation or abscess with bleeding; H53.9 Unspecified visual disturbance; Z01.810 Encounter for preprocedural cardiovascular examination; Z01.811 Encounter for preprocedural respiratory examination ==

== ENCOUNTER → 2017-11-14 | Outpatient (CLI) | payer OTHER | LOC: WCC 11:18 | PROVIDERS: ATTEND Podiatrist Foot & Ankle Surgery | DX: E11.621 Type 2 diabetes mellitus with foot ulcer (principal); E11.610 Type 2 diabetes mellitus with diabetic neuropathic arthropathy; L97.429 Non-pressure chronic ulcer of left heel and midfoot with unspecified severity; I69.998 Other sequelae following unspecified cerebrovascular disease; M10.9 Gout, unspecified; K57.33 Diverticulitis of large intestine without perforation or abscess with bleeding; H53.9 Unspecified visual disturbance; Z01.810 Encounter for preprocedural cardiovascular examination; Z01.811 Encounter for preprocedural respiratory examination | CPT/HCPCS: 12020; G0277 ×2 ==

== ENCOUNTER → 2017-11-15 | Outpatient (CLI) | payer OTHER | LOC: WCC 09:46 | PROVIDERS: ATTEND Podiatrist Foot & Ankle Surgery | DX: E11.621 Type 2 diabetes mellitus with foot ulcer (principal); E11.610 Type 2 diabetes mellitus with diabetic neuropathic arthropathy; L97.429 Non-pressure chronic ulcer of left heel and midfoot with unspecified severity; I69.998 Other sequelae following unspecified cerebrovascular disease; H53.9 Unspecified visual disturbance; M10.9 Gout, unspecified; K57.33 Diverticulitis of large intestine without perforation or abscess with bleeding; Z01.810 Encounter for preprocedural cardiovascular examination; Z01.811 Encounter for preprocedural respiratory examination ==

== ENCOUNTER → 2017-11-17 | Outpatient (CLI) | payer OTHER | LOC: WCC 08:56 | PROVIDERS: ATTEND Podiatrist Foot & Ankle Surgery | DX: E11.621 Type 2 diabetes mellitus with foot ulcer (principal); E11.610 Type 2 diabetes mellitus with diabetic neuropathic arthropathy; L97.429 Non-pressure chronic ulcer of left heel and midfoot with unspecified severity; K57.33 Diverticulitis of large intestine without perforation or abscess with bleeding; M10.9 Gout, unspecified; I69.998 Other sequelae following unspecified cerebrovascular disease; H53.9 Unspecified visual disturbance; Z01.811 Encounter for preprocedural respiratory examination; Z01.810 Encounter for preprocedural cardiovascular examination ==

== ENCOUNTER → 2017-11-20 | Outpatient (CLI) | payer OTHER | LOC: WCC 08:54 | PROVIDERS: ATTEND Podiatrist Foot & Ankle Surgery | DX: E11.621 Type 2 diabetes mellitus with foot ulcer (principal); E11.610 Type 2 diabetes mellitus with diabetic neuropathic arthropathy; L97.429 Non-pressure chronic ulcer of left heel and midfoot with unspecified severity; I69.998 Other sequelae following unspecified cerebrovascular disease; M10.9 Gout, unspecified; K57.33 Diverticulitis of large intestine without perforation or abscess with bleeding; H53.9 Unspecified visual disturbance; Z01.810 Encounter for preprocedural cardiovascular examination; Z01.811 Encounter for preprocedural respiratory examination ==

== ENCOUNTER → 2017-11-21 | Outpatient (CLI) | payer OTHER | LOC: WCC 10:16 | PROVIDERS: ATTEND Podiatrist Foot & Ankle Surgery | DX: E11.621 Type 2 diabetes mellitus with foot ulcer (principal); E11.610 Type 2 diabetes mellitus with diabetic neuropathic arthropathy; L97.429 Non-pressure chronic ulcer of left heel and midfoot with unspecified severity; I69.998 Other sequelae following unspecified cerebrovascular disease; M10.9 Gout, unspecified; K57.33 Diverticulitis of large intestine without perforation or abscess with bleeding; H53.9 Unspecified visual disturbance; Z01.810 Encounter for preprocedural cardiovascular examination; Z01.811 Encounter for preprocedural respiratory examination ==

== ENCOUNTER → 2017-11-22 | Outpatient (CLI) | payer OTHER | LOC: WCC 10:04 | PROVIDERS: ATTEND Podiatrist Foot & Ankle Surgery | DX: E11.610 Type 2 diabetes mellitus with diabetic neuropathic arthropathy (principal); E11.621 Type 2 diabetes mellitus with foot ulcer; I69.998 Other sequelae following unspecified cerebrovascular disease; L97.429 Non-pressure chronic ulcer of left heel and midfoot with unspecified severity; M10.9 Gout, unspecified; H53.9 Unspecified visual disturbance; K57.33 Diverticulitis of large intestine without perforation or abscess with bleeding; Z01.810 Encounter for preprocedural cardiovascular examination; Z01.811 Encounter for preprocedural respiratory examination | CPT/HCPCS: 99212; G0277 ==

== ENCOUNTER → 2017-12-20 | Outpatient (CLI) | payer OTHER | LOC: WCC 12:48 | PROVIDERS: ATTEND Podiatrist Foot & Ankle Surgery | DX: E11.610 Type 2 diabetes mellitus with diabetic neuropathic arthropathy (principal); H53.9 Unspecified visual disturbance; I69.998 Other sequelae following unspecified cerebrovascular disease; K57.33 Diverticulitis of large intestine without perforation or abscess with bleeding; M10.9 Gout, unspecified; Z01.810 Encounter for preprocedural cardiovascular examination; Z01.811 Encounter for preprocedural respiratory examination ==

== ENCOUNTER 2022-04-27 08:06 | Inpatient (IN) | payer MEDICARE, OTHER ==
[~2022-04-27] VITALS: Ht 172.7 cm; Wt 80.7 kg
[2022-04-27] MEDS ORDERED: SODIUM CHLORIDE 0.9% 1000ML 1,000 ML IV STA ×2 (08:15→10:11)
[2022-04-27] MEDS ORDERED: ONDANSETRON HCL INJ 2MG/ML 2ML 2 MG/ML VIAL IV STA (08:15)
[2022-04-27 08:36] LABS: BASOPHILS # (AUTO) 0.1 (0.0-0.1); BASOPHILS % 0.3 % (0.0-1.0); EOSINOPHILS # (AUTO) 0.1 (0.0-0.4); EOSINOPHILS % 0.6 % (0.0-6.0); HEMATOCRIT 39.3 % (38.2-49.6); HEMOGLOBIN 11.9 g/dL (14.0-18.0); LYMPHOCYTES # (AUTO) 0.8 (1.0-3.2); LYMPHOCYTES % 4.5 % (18.0-39.1); MEAN CORPUSCULAR HEMOGLOBIN 27.4 pg (28-32); MEAN CORPUSCULAR HGB CONC 30.3 g/dL (31-35); MEAN CORPUSCULAR VOLUME 90.3 fL (81-99); MONOCYTES # (AUTO) 0.9 (0.2-0.8); MONOCYTES % 4.9 % (4.4-11.3); NEUTROPHILS # (AUTO) 15.5 (2.1-6.9); NEUTROPHILS % 89.4 % (38.7-80.0); PLATELET COUNT 258 x10e3/uL (140-360); RED BLOOD COUNT 4.35 x10e6/uL (4.3-5.7); RED CELL DISTRIBUTION WIDTH 15.1 % (11.7-14.4)
[2022-04-27 08:58] LABS: B-TYPE NATRIURETIC PEPTIDE2 51.5 pg/mL (0-100)
[2022-04-27 08:59] LABS: INR 0.95; PROTHROMBIN TIME 13.5 seconds (11.9-14.5)
[2022-04-27 09:00] LABS: PARTIAL THROMBOPLASTIN TIME 29.5 seconds (23.8-35.5)
[2022-04-27 09:03] LABS: ALBUMIN 3.1 g/dL (3.5-5.0); ALBUMIN/GLOBULIN RATIO 0.8 (0.8-2.0); CALCIUM 8.2 mg/dL (8.4-10.2); CREATININE, SERUM 0.81 mg/dL (0.72-1.25); MAGNESIUM 1.5 MG/DL (1.3-2.1)
[2022-04-27 09:12] LABS: ANION GAP 19.3 mmol/L (8-16); POTASSIUM 4.3 mmol/L (3.5-5.1)
[2022-04-27] MEDS ORDERED: IOPAMIDOL 370 MG/ML 100 ML INFUS..BTL INJ ONE (09:25)
[2022-04-27] MEDS ORDERED: SODIUM CHLORIDE 0.9% 1000ML 1,000 ML ONE (10:22)
[2022-04-27] MEDS ORDERED: ONDANSETRON HCL INJ 2MG/ML 2ML 2 MG/ML VIAL IV PRN ×2 (11:30)
[2022-04-27] MEDS: SODIUM CHLORIDE 0.9% 1000ML 1,000 ML IV SCH ×2 (11:30→21:53)
[2022-04-27 11:47] LABS: CLARITY,URINE CLEAR (CLEAR); COLOR,URINE YELLOW (YELLOW); KETONES,URINE TRACE (NEGATIVE); LEUKOCYTE ESTERASE ,URINE NEGATIVE (NEGATIVE); NITRITE,URINE POSITIVE (NEGATIVE); PROTEIN,URINE DIPSTICK 1+ (NEGATIVE)
[2022-04-27 11:48] LABS: URINE UROBILINOGEN 0.2 mg/dL (0.2 - 1)
[2022-04-27 11:58] LABS: AMORPHOUS SEDIMENT,URINE FEW (FEW); BACTERIA,URINE FEW /HPF; EPITHELIAL CELLS,URINE RARE /LPF; RBC,URINE 0-5 /HPF (0-5); WBC,URINE (MAN) 21-50 /HPF (0-5)
[2022-04-27 15:08] VITALS: BP 139/58
[2022-04-27 16:06] VITALS: BP 139/58
[2022-04-27 16:28] LABS: CREATINE KINASE MB 1.6 ng/mL (0-5.0)
[2022-04-27 16:52] LABS: AMYLASE 63 U/L (25-125); LIPASE 48 U/L (8-78)
[2022-04-27] MEDS: GABAPENTIN 100 MG CAP PO SCH (17:21)
[2022-04-27] MEDS: GLIMEPIRIDE 2 MG TAB PO SCH (17:21)
[2022-04-27 20:00] VITALS: BP 121/71
[2022-04-27 21:00] VITALS: BP 121/71
[2022-04-27] MEDS: ATORVASTATIN 10 MG TAB PO SCH (21:52)
[2022-04-28] VITALS (9 sets, daily range): BP systolic 103–131; BP diastolic 51–84
[2022-04-28 05:58] LABS: BASOPHILS # (AUTO) 0.1 (0.0-0.1); BASOPHILS % 0.5 % (0.0-1.0); EOSINOPHILS # (AUTO) 0.3 (0.0-0.4); EOSINOPHILS % 1.7 % (0.0-6.0); HEMATOCRIT 31.8 % (38.2-49.6); HEMOGLOBIN 10.2 g/dL (14.0-18.0); LYMPHOCYTES # (AUTO) 1.7 (1.0-3.2); LYMPHOCYTES % 11.3 % (18.0-39.1); MEAN CORPUSCULAR HEMOGLOBIN 27.6 pg (28-32); MEAN CORPUSCULAR HGB CONC 32.1 g/dL (31-35); MEAN CORPUSCULAR VOLUME 85.9 fL (81-99); MONOCYTES # (AUTO) 1.2 (0.2-0.8); MONOCYTES % 7.9 % (4.4-11.3); NEUTROPHILS # (AUTO) 11.4 (2.1-6.9); NEUTROPHILS % 78.1 % (38.7-80.0); PLATELET COUNT 212 x10e3/uL (140-360); RED CELL DISTRIBUTION WIDTH 15.6 % (11.7-14.4)
[2022-04-28 06:31] LABS: ALBUMIN 2.7 g/dL (3.5-5.0); ALBUMIN/GLOBULIN RATIO 0.7 (0.8-2.0); ANION GAP 13.9 mmol/L (8-16); CALCIUM 8.6 mg/dL (8.4-10.2); CREATININE, SERUM 0.79 mg/dL (0.72-1.25); POTASSIUM 3.9 mmol/L (3.5-5.1)
[2022-04-28] MEDS ORDERED: DEXTROSE 50% SYRINGE 50 ML IV PRN (06:45)
[2022-04-28 07:00] LABS: CREATINE KINASE MB 1.4 ng/mL (0-5.0)
[2022-04-28] MEDS: GLIMEPIRIDE 2 MG TAB PO SCH ×2 (07:30→17:19)
[2022-04-28] MEDS: LINAGLIPTIN 2.5 MG PO SCH (09:00)
[2022-04-28] MEDS ORDERED: NON-FORMULARY MEDICATION (Esomeprazole Magnesium (Nexium) 40 MG) PO SCH (09:00)
[2022-04-28] MEDS: GABAPENTIN 100 MG CAP PO SCH (09:15)
[2022-04-28] MEDS: ASPIRIN 81 MG ENTERIC COATED PO SCH (09:16)
[2022-04-28] MEDS ORDERED: SODIUM CHLORIDE 0.9% 250ML 250 ML ONE (10:40)
[2022-04-28 14:18] LABS: CREATINE KINASE MB 1.3 ng/mL (0-5.0)
[2022-04-28] MEDS: GABAPENTIN 300 MG CAP PO SCH (17:19)
[2022-04-28] MEDS: ATORVASTATIN 10 MG TAB PO SCH (22:40)
[2022-04-29] VITALS (7 sets, daily range): BP systolic 118–143; BP diastolic 54–92
[2022-04-29] MEDS: PANTOPRAZOLE SOD 40 MG TABEC PO SCH (08:34)
[2022-04-29] MEDS: ASPIRIN 81 MG ENTERIC COATED PO SCH (08:34)
[2022-04-29] MEDS: GABAPENTIN 300 MG CAP PO SCH ×2 (08:34→16:00)
[2022-04-29] MEDS: GLIMEPIRIDE 2 MG TAB PO SCH ×2 (08:34→16:00)
[2022-04-29] MEDS: LINAGLIPTIN 2.5 MG PO SCH (09:00)
[2022-04-29] MEDS ORDERED: SODIUM CHLORIDE 0.9% 250ML 250 ML ONE (10:11)
[2022-04-29 10:23] LABS: BASOPHILS % 0.4 % (0.0-1.0); EOSINOPHILS # (AUTO) 0.3 (0.0-0.4); EOSINOPHILS % 3.1 % (0.0-6.0); HEMATOCRIT 32.2 % (38.2-49.6); HEMOGLOBIN 9.8 g/dL (14.0-18.0); LYMPHOCYTES # (AUTO) 1.2 (1.0-3.2); LYMPHOCYTES % 10.7 % (18.0-39.1); MEAN CORPUSCULAR HEMOGLOBIN 27.3 pg (28-32); MEAN CORPUSCULAR HGB CONC 30.4 g/dL (31-35); MEAN CORPUSCULAR VOLUME 89.7 fL (81-99); MONOCYTES # (AUTO) 0.9 (0.2-0.8); MONOCYTES % 8.5 % (4.4-11.3); NEUTROPHILS # (AUTO) 8.3 (2.1-6.9); NEUTROPHILS % 77.1 % (38.7-80.0); PLATELET COUNT 196 x10e3/uL (140-360); RED BLOOD COUNT 3.59 x10e6/uL (4.3-5.7)
[2022-04-29 10:47] LABS: CALCIUM 8.5 mg/dL (8.4-10.2); CREATININE, SERUM 0.73 mg/dL (0.72-1.25)
[2022-04-29] MEDS: ATORVASTATIN 10 MG TAB PO SCH (21:00)
[2022-04-30] VITALS (8 sets, daily range): BP systolic 127–162; BP diastolic 53–73
[2022-04-30 06:38] LABS: BASOPHILS % 0.4 % (0.0-1.0); EOSINOPHILS # (AUTO) 0.4 (0.0-0.4); EOSINOPHILS % 4.2 % (0.0-6.0); HEMATOCRIT 34.3 % (38.2-49.6); HEMOGLOBIN 10.8 g/dL (14.0-18.0); LYMPHOCYTES # (AUTO) 1.4 (1.0-3.2); LYMPHOCYTES % 13.2 % (18.0-39.1); MEAN CORPUSCULAR HEMOGLOBIN 26.9 pg (28-32); MEAN CORPUSCULAR HGB CONC 31.5 g/dL (31-35); MEAN CORPUSCULAR VOLUME 85.3 fL (81-99); MONOCYTES % 9.4 % (4.4-11.3); NEUTROPHILS # (AUTO) 7.6 (2.1-6.9); NEUTROPHILS % 72.3 % (38.7-80.0); PLATELET COUNT 230 x10e3/uL (140-360); RED BLOOD COUNT 4.02 x10e6/uL (4.3-5.7); RED CELL DISTRIBUTION WIDTH 15.1 % (11.7-14.4)
[2022-04-30 07:24] LABS: ANION GAP 14.1 mmol/L (8-16); CALCIUM 9.2 mg/dL (8.4-10.2); CREATININE, SERUM 0.68 mg/dL (0.72-1.25); POTASSIUM 4.1 mmol/L (3.5-5.1)
[2022-04-30] MEDS: GABAPENTIN 300 MG CAP PO SCH ×2 (08:29→17:22)
[2022-04-30] MEDS: PANTOPRAZOLE SOD 40 MG TABEC PO SCH (08:30)
[2022-04-30] MEDS: GLIMEPIRIDE 2 MG TAB PO SCH (08:30)
[2022-04-30] MEDS: ASPIRIN 81 MG ENTERIC COATED PO SCH (08:30)
[2022-04-30] MEDS: LINAGLIPTIN 2.5 MG PO SCH (09:00)
[2022-04-30] MEDS ORDERED: FUROSEMIDE INJ 10 MG/ML 4 ML VIAL IV NR (13:00)
[2022-04-30] MEDS: ATORVASTATIN 10 MG TAB PO SCH (21:00)
[2022-04-30] MEDS ORDERED: DEXTROSE 50% SYRINGE 50 ML IV PRN (21:45)
[2022-04-30] MEDS ORDERED: HYDRALAZINE HCL 20 MG/ML VIAL IV PRN (21:45)
[2022-04-30] MEDS: INSULIN REGULAR, HUMAN 100 UNIT/1 ML SQ SCH (22:50)
[2022-05-01] VITALS: BP 132/76
[2022-05-01 04:00] VITALS: BP 138/58
[2022-05-01 06:28] LABS: BASOPHILS # (AUTO) 0.1 (0.0-0.1); BASOPHILS % 0.6 % (0.0-1.0); EOSINOPHILS # (AUTO) 0.5 (0.0-0.4); EOSINOPHILS % 5.8 % (0.0-6.0); LYMPHOCYTES # (AUTO) 1.6 (1.0-3.2); LYMPHOCYTES % 18.8 % (18.0-39.1); MEAN CORPUSCULAR HGB CONC 30.6 g/dL (31-35); MEAN CORPUSCULAR VOLUME 88.5 fL (81-99); MONOCYTES % 11.7 % (4.4-11.3); NEUTROPHILS # (AUTO) 5.4 (2.1-6.9); NEUTROPHILS % 62.7 % (38.7-80.0); PLATELET COUNT 245 x10e3/uL (140-360); RED BLOOD COUNT 4.07 x10e6/uL (4.3-5.7); RED CELL DISTRIBUTION WIDTH 14.8 % (11.7-14.4)
[2022-05-01 06:51] LABS: ANION GAP 15.2 mmol/L (8-16); CREATININE, SERUM 0.74 mg/dL (0.72-1.25); POTASSIUM 3.2 mmol/L (3.5-5.1)
[2022-05-01] MEDS: INSULIN REGULAR, HUMAN 100 UNIT/1 ML SQ SCH ×2 (07:30→11:43)
[2022-05-01] MEDS ORDERED: INSULIN REGULAR, HUMAN 100 UNIT/1 ML SQ SCH (07:30)
[2022-05-01 08:00] VITALS: BP 188/66
[2022-05-01 08:31] LABS: ALBUMIN 2.6 g/dL (3.5-5.0)
[2022-05-01 08:37] LABS: ALBUMIN/GLOBULIN RATIO 0.6 (0.8-2.0)
[2022-05-01 09:30] VITALS: BP 118/66
[2022-05-01] MEDS: ASPIRIN 81 MG ENTERIC COATED PO SCH (09:48)
[2022-05-01] MEDS: GABAPENTIN 300 MG CAP PO SCH (09:48)
[2022-05-01] MEDS: PANTOPRAZOLE SOD 40 MG TABEC PO SCH (09:48)
[2022-05-01] MEDS ORDERED: POTASSIUM CHLORIDE 10MEQ EA PO ONE ×2 (11:00→12:45)
[2022-05-01 14:49] VITALS: BP 123/61
[2022-05-05] MEDS ORDERED: TRULICITY SC SCH (09:00)
== END 2022-05-01 16:51 | disposition home or self-care (01) | DRG 871 ==
LOC: ER 08:16 → ERHOLD 11:25 → MED/SURG2 14:50
DX: A41.9 Sepsis, unspecified organism (principal); I50.33 Acute on chronic diastolic (congestive) heart failure; J69.0 Pneumonitis due to inhalation of food and vomit; N39.0 Urinary tract infection, site not specified; I69.351 Hemiplegia and hemiparesis following cerebral infarction affecting right dominant side; H54.3 Unqualified visual loss, both eyes; H35.30 Unspecified macular degeneration; B95.7 Other staphylococcus as the cause of diseases classified elsewhere; I11.0 Hypertensive heart disease with heart failure; Z20.822 Contact with and (suspected) exposure to COVID-19; R33.9 Retention of urine, unspecified; W06.XXXA Fall from bed, initial encounter; Y93.89 Activity, other specified; Y92.013 Bedroom of single-family (private) house as the place of occurrence of the external cause; S00.01XA Abrasion of scalp, initial encounter; E11.649 Type 2 diabetes mellitus with hypoglycemia without coma; Z79.4 Long term (current) use of insulin; E11.65 Type 2 diabetes mellitus with hyperglycemia; E78.5 Hyperlipidemia, unspecified; E11.69 Type 2 diabetes mellitus with other specified complication
CPT/HCPCS: 36415; 70450; 71045; 71046; 72125; 74177; 74230; 80048; 80053; 81001; 82150; 82550; 82553; 82948; 83605; 83690; 83735; 83880; 84484; 85025; 85610; 85730; 87040; 87086; 87186; 93005; 94760; 94799; 99251; 99284; J0360; J0456; J0696; J1817; J1940; J2405; J2543; J7030; J7050; J7799; Q9967

== ENCOUNTER 2023-03-31 13:07 | Emergency (ER) | payer MEDICARE, OTHER ==
[~2023-03-31] VITALS: Ht 172.7 cm; Wt 81.2 kg
[2023-03-31 14:33] LABS: BASOPHILS % 0.4 % (0.0-1.0); EOSINOPHILS # (AUTO) 0.3 (0.0-0.4); EOSINOPHILS % 2.8 % (0.0-6.0); HEMATOCRIT 31.9 % (38.2-49.6); HEMOGLOBIN 10.8 g/dL (14.0-18.0); LYMPHOCYTES # (AUTO) 1.4 (1.0-3.2); LYMPHOCYTES % 12.5 % (18.0-39.1); MEAN CORPUSCULAR HEMOGLOBIN 27.5 pg (28-32); MEAN CORPUSCULAR HGB CONC 33.9 g/dL (31-35); MEAN CORPUSCULAR VOLUME 81.2 fL (81-99); MONOCYTES # (AUTO) 0.9 (0.2-0.8); MONOCYTES % 8.2 % (4.4-11.3); NEUTROPHILS # (AUTO) 8.5 (2.1-6.9); NEUTROPHILS % 75.7 % (38.7-80.0); PLATELET COUNT 278 x10e3/uL (140-360); RED BLOOD COUNT 3.93 x10e6/uL (4.3-5.7); RED CELL DISTRIBUTION WIDTH 15.5 % (11.7-14.4); WHITE BLOOD COUNT 11.16 x10e3/uL (4.8-10.8)
[2023-03-31 14:42] LABS: INR 0.93
[2023-03-31 14:43] LABS: PARTIAL THROMBOPLASTIN TIME 31.9 seconds (23.8-35.5)
[2023-03-31 14:46] LABS: ANION GAP 14.5 mmol/L (8-16); CALCIUM 9.2 mg/dL (8.4-10.2); CREATININE, SERUM 0.82 mg/dL (0.72-1.25); POTASSIUM 4.5 mmol/L (3.5-5.1)
[2023-03-31 15:13] LABS: CLARITY,URINE TURBID (CLEAR); COLOR,URINE YELLOW (YELLOW); LEUKOCYTE ESTERASE ,URINE SMALL (NEGATIVE); NITRITE,URINE NEGATIVE (NEGATIVE); PROTEIN,URINE DIPSTICK 2+ (NEGATIVE)
[2023-03-31 15:14] LABS: KETONES,URINE NEGATIVE (NEGATIVE); URINE UROBILINOGEN 0.2 mg/dL (0.2 - 1)
[2023-03-31 15:26] LABS: WBC,URINE (MAN) >50 /HPF (0-5)
[2023-03-31 15:27] LABS: BACTERIA,URINE MODERATE /HPF; EPITHELIAL CELLS,URINE FEW /LPF
[2023-03-31] MEDS ORDERED: AMOX TR-K CLV1 EAC2 PO (17:02)
[2023-03-31 17:28] VITALS: BP 133/50; PULSE 82; RESP 17; TEMP 98.4; O2SAT 98
== END 2023-03-31 17:57 | disposition home or self-care (01) ==
LOC: ER 13:29
DX: R53.1 Weakness (principal); N39.0 Urinary tract infection, site not specified; I10 Essential (primary) hypertension; E11.9 Type 2 diabetes mellitus without complications; I50.9 Heart failure, unspecified; D64.9 Anemia, unspecified; H54.8 Legal blindness, as defined in USA; H35.30 Unspecified macular degeneration; I69.351 Hemiplegia and hemiparesis following cerebral infarction affecting right dominant side; R94.31 Abnormal electrocardiogram [ECG] [EKG]
CPT/HCPCS: 36415; 71045; 80048; 81001; 85025; 85610; 85730; 87086; 87186; 93005; 99284; J0696

== ENCOUNTER → 2023-05-03 | Day surgery (SDC) | payer MEDICARE, OTHER ==
[~2023-05-03] MED LIST changes: +AMOX TR-K CLV1 EAC2 PO; +ATORVASTATIN CA20 MG PO; +CIPRO500 MG PO; +FEROSUL325 MG PO; +FINASTERIDE5 MG PO; +GLIMEPIRIDE2 MG PO; +LACTATED RINGER'S 1,000 ML ONE; +LEXAPRO10 MG PO; +LIDOCAINE HCL 2% LOCAL INJ 5 ML SDV VIAL INJ ONE; +LISINOPRIL2.5 MG PO; +METFORMIN HCL500 MG PO; +MUCINEX1200 MG PO; +MULTI-VITAMIN1 EACH PO; +NYSTATIN15 G2 TOP; +OMEPRAZOLE20 MG; +PROPOFOL IV EMULSION 10 MG/ML 20 ML VIAL ONE; +SYNJARDY 12.5-1 EACH
[2023-05-03 11:51] VITALS: TEMP 97.6
[2023-05-03 12:15] VITALS: BP 146/74; PULSE 81; RESP 18; O2SAT 99
== END | disposition home or self-care (01) ==
LOC: OR 09:37
PROVIDERS: ATTEND Internal Medicine Gastroenterology
DX: D50.9 Iron deficiency anemia, unspecified (principal); D12.3 Benign neoplasm of transverse colon; K29.00 Acute gastritis without bleeding; K29.50 Unspecified chronic gastritis without bleeding; K22.70 Barrett's esophagus without dysplasia; K44.9 Diaphragmatic hernia without obstruction or gangrene; K57.30 Diverticulosis of large intestine without perforation or abscess without bleeding; K55.20 Angiodysplasia of colon without hemorrhage; K64.8 Other hemorrhoids; E11.9 Type 2 diabetes mellitus without complications; E66.3 Overweight; I11.0 Hypertensive heart disease with heart failure; I50.9 Heart failure, unspecified; I69.354 Hemiplegia and hemiparesis following cerebral infarction affecting left non-dominant side; M62.89 Other specified disorders of muscle; Z01.812 Encounter for preprocedural laboratory examination; Z79.82 Long term (current) use of aspirin; Z79.84 Long term (current) use of oral hypoglycemic drugs; Z79.899 Other long term (current) drug therapy; Z68.27 Body mass index [BMI] 27.0-27.9, adult; Z87.440 Personal history of urinary (tract) infections; Z87.891 Personal history of nicotine dependence
CPT/HCPCS: 36415 ×2; 43239; 45380; 82948; 88305; 88342; J2001; J2704; J7121

== ENCOUNTER 2024-08-24 13:26 | Emergency (ER) | payer MEDICARE, OTHER ==
[~2024-08-24] VITALS: Ht 172.7 cm; Wt 95.3 kg
[~2024-08-24 13:26] MED LIST changes: +ALFUZOSIN HCL10 MG PO; +AZITHROMYCIN250 MG PO; +BROMPHENIR-PSE118 ML PO; +CLOPIDOGREL75 MG PO; +DEXLANSOPRAZOLE60 MG PO; +DOCUSATE SODIU100 MG PO; +ESCITALOPRAM OX10 MG PO; +FLOMAX0.4 MG PO; +FUROSEMIDE20 MG PO; -LACTATED RINGER'S 1,000 ML ONE; +LASIX20 MG PO; -LIDOCAINE HCL 2% LOCAL INJ 5 ML SDV VIAL INJ ONE; +ONDANSETRON ODT4 MG PO; -PROPOFOL IV EMULSION 10 MG/ML 20 ML VIAL ONE; +VITAMIN C500 M2 PO
[2024-08-24 13:39] VITALS: TEMP 97.6
[2024-08-24 15:06] LABS: BASOPHILS % 0.4 % (0.0-1.0); EOSINOPHILS # (AUTO) 0.5 (0.0-0.4); EOSINOPHILS % 6.4 % (0.0-6.0); HEMATOCRIT 35.4 % (38.2-49.6); HEMOGLOBIN 11.2 g/dL (14.0-18.0); LYMPHOCYTES % 28.2 % (18.0-39.1); MEAN CORPUSCULAR HEMOGLOBIN 27.1 pg (28-32); MEAN CORPUSCULAR HGB CONC 31.6 g/dL (31-35); MEAN CORPUSCULAR VOLUME 85.7 fL (81-99); MONOCYTES # (AUTO) 0.8 (0.2-0.8); MONOCYTES % 10.8 % (4.4-11.3); NEUTROPHILS # (AUTO) 3.8 (2.1-6.9); NEUTROPHILS % 54.1 % (38.7-80.0); PLATELET COUNT 177 x10e3/uL (140-360); RED BLOOD COUNT 4.13 x10e6/uL (4.3-5.7); RED CELL DISTRIBUTION WIDTH 16.6 % (11.7-14.4); WHITE BLOOD COUNT 7.05 x10e3/uL (4.8-10.8)
[2024-08-24 15:22] LABS: INR 0.93
[2024-08-24 15:23] LABS: PARTIAL THROMBOPLASTIN TIME 27.9 seconds (23.8-35.5)
[2024-08-24 15:33] LABS: ALBUMIN 3.1 g/dL (3.5-5.0); ALBUMIN/GLOBULIN RATIO 0.9 (0.8-2.0); ANION GAP 13.9 mmol/L (8-16); BILIRUBIN,TOTAL 0.2 mg/dL (0.2-1.2); CALCIUM 8.4 mg/dL (8.4-10.2); CREATININE, SERUM 0.77 mg/dL (0.72-1.25); MAGNESIUM 1.6 MG/DL (1.3-2.1); POTASSIUM 3.9 mmol/L (3.5-5.1); TOTAL PROTEIN 6.6 g/dL (6.5-8.1)
[2024-08-24 15:39] LABS: TROPONIN I 0.004 ng/mL (0-0.300)
[2024-08-24] MEDS: SODIUM CHLORIDE 0.9% 1000ML 1,000 ML IV STA (17:40)
[2024-08-24 17:42] VITALS: BP 132/72; PULSE 96
[2024-08-24] MEDS: METOPROLOL TARTRATE 25 MG TAB PO ONE (17:42)
[2024-08-24 18:55] LABS: CLARITY,URINE CLEAR (CLEAR); COLOR,URINE YELLOW (YELLOW)
[2024-08-24 18:56] LABS: BILIRUBIN,URINE NEGATIVE (NEGATIVE); GLUCOSE, URINE 500 (NEGATIVE); KETONES,URINE NEGATIVE (NEGATIVE); LEUKOCYTE ESTERASE ,URINE NEGATIVE (NEGATIVE); NITRITE,URINE NEGATIVE (NEGATIVE); PH,URINE 5.5 (5 - 7); PROTEIN,URINE DIPSTICK 1+ (NEGATIVE); URINE UROBILINOGEN 0.2 mg/dL (0.2 - 1)
[2024-08-24 19:09] LABS: BACTERIA,URINE FEW /HPF; EPITHELIAL CELLS,URINE FEW /LPF; RBC,URINE 0-5 /HPF (0-5); WBC,URINE (MAN) 0-5 /HPF (0-5)
[2024-08-24 20:30] VITALS: PULSE 89; RESP 18; O2SAT 94
== END 2024-08-24 20:38 | disposition home or self-care (01) ==
LOC: ER 13:47
DX: R53.1 Weakness (principal); I49.3 Ventricular premature depolarization; E86.0 Dehydration; I10 Essential (primary) hypertension; E11.65 Type 2 diabetes mellitus with hyperglycemia; I50.9 Heart failure, unspecified; D64.9 Anemia, unspecified; H54.8 Legal blindness, as defined in USA; H35.30 Unspecified macular degeneration; R94.31 Abnormal electrocardiogram [ECG] [EKG]; I69.351 Hemiplegia and hemiparesis following cerebral infarction affecting right dominant side
CPT/HCPCS: 36415; 71045; 80053; 81001; 83735; 84484; 85025; 85610; 85730; 87086; 87186; 93005; 99283; J2470; J7030